=== PATIENT | male | born 1990 | race African-American/Black ===

== ENCOUNTER 2017-12-12 13:00 | Inpatient (IN) | payer OTHER ==
[2017-12-12 13:24] LABS: ADD MAN DIFF? NO
[2017-12-12] MEDS: IOHEXOL 300 MG/ML 100ML VIAL. IV ×2 (13:26)
[2017-12-12] MEDS: IV NORMAL SALINE 1000ML BAG 1,000 ML IV ×4 (13:28→14:27)
[2017-12-12] MEDS ORDERED: CONTRAST GIVEN. MC ×2 (13:30)
[2017-12-12 13:34] LABS: BASO % 1 % (0-3); EOS # 0.1 x10^3/uL (0.0-0.7); EOS % 3 % (0-3); HEMATOCRIT 43.4 % (39.0-53.0); HEMOGLOBIN 14.7 g/dL (13.0-17.5); LYMPH # 2.7 x10^3/uL (1.0-4.8); LYMPH % 51 % (24-48); MEAN CORPUSCULAR HEMOGLOBIN 31 pg (25-35); MEAN CORPUSCULAR HGB CONC 34 g/dL (31-37); MEAN CORPUSCULAR VOLUME 92 fL (79-100); MONO # 0.5 x10^3/uL (0.0-1.1); MONO % 10 % (0-9); NEUT # 1.9 x10^3uL (1.8-7.7); NEUT % 36 % (31-73); PLATELET COUNT 306 x10^3/uL (140-400); RED BLOOD COUNT 4.74 x10^6/uL (4.30-5.70); RED CELL DISTRIBUTION WIDTH 13.3 % (11.5-14.5); WHITE BLOOD COUNT 5.3 x10^3/uL (4.0-11.0)
[2017-12-12 13:35] LABS: ANION GAP 9 (6-14); BLOOD UREA NITROGEN 14 mg/dL (8-26); BUN/CREATININE RATIO 14 (6-20); CALCIUM 9.2 mg/dL (8.5-10.1); CARBON DIOXIDE 28 mmol/L (21-32); CHLORIDE 102 mmol/L (98-107); GFR 109.3; GLUCOSE 73 mg/dL (70-99); SODIUM 139 mmol/L (136-145)
[2017-12-12 13:41] LABS: ALBUMIN 3.9 g/dL (3.4-5.0); ALBUMIN/GLOBULIN RATIO 1.1 (1.0-1.7); ALK PHOS 83 U/L (46-116); ALT (SGPT) 21 U/L (16-63); AST (SGOT) 19 U/L (15-37); LIPASE 116 U/L (73-393); MAGNESIUM 1.8 mg/dL (1.8-2.4); TOTAL BILIRUBIN 0.7 mg/dL (0.2-1.0); TOTAL PROTEIN 7.4 g/dL (6.4-8.2)
[2017-12-12] MEDS: MORPHINE SULFATE 4 MG/ML DISP.SYRIN. IV ×2 (13:41)
[2017-12-12 13:42] LABS: PROTHROMBIN TIME PATIENT 12.6 SEC (11.7-14.0)
[2017-12-12 13:46] LABS: BILIRUBIN,URINE NEGATIVE (NEG); CLARITY,URINE CLEAR; COLOR,URINE YELLOW; GLUCOSE,URINE NEGATIVE (NEG); NITRITE,URINE NEGATIVE (NEG); PROTEIN,URINE NEGATIVE (NEG-TRACE); UROBILINOGEN,URINE 0.2 mg/dL (0.2 mg/dL)
[2017-12-12 13:46] LABS: TROPONINI < 0.017 ng/mL (0.000-0.055)
[2017-12-12 13:50] LABS: NT-PRO BNP 19 pg/mL (0-124)
[2017-12-12 13:50] LABS: CKMB INDEX 0.2 % (0-4); CKMB MASS 0.5 ng/mL (0.0-3.6); CREATINE KINASE 235 U/L (39-308)
[2017-12-12 13:51] LABS: D-DIMER 0.27 ug/mlFEU (0.00-0.50)
[2017-12-12 13:53] LABS: AMPHETAMINE/METHAMPHETAMINE NEG (NEG); BARBITURATES NEG (NEG); BENZODIAZEPINES NEG (NEG); CANNABINOIDS NEG (NEG); COCAINE NEG (NEG); ETHANOL, URINE NEG (NEG); METHADONE NEG (NEG); OPIATES NEG (NEG); PHENCYCLIDINE NEG (NEG)
[2017-12-12 13:56] LABS: BACTERIA,URINE 0 /HPF (0-FEW); RBC,URINE 0 /HPF (0-2)
[2017-12-12 17:08] LABS: THYROID STIM HORMONE (TSH) 0.935 uIU/mL (0.358-3.74)
[2017-12-13] MEDS: GADOBUTROL 10 MMOL/10 ML VIAL IV ×2 (10:31)
== END 2017-12-13 13:50 | disposition home or self-care (01) | DRG 310 ==
LOC: ER 13:00 → 2 SOUTH 14:32
DX: R07.89 Other chest pain (principal); I49.9 Cardiac arrhythmia, unspecified (principal); R07.9 Chest pain, unspecified; R56.9 Unspecified convulsions; E86.0 Dehydration; R55 Syncope and collapse; Z82.49 Family history of ischemic heart disease and other diseases of the circulatory system
CPT/HCPCS: 36415; 70553; 71045; 71275; 80053; 80307; 81001; 82553; 83690; 83735; 83880; 84443; 84484; 85025; 85379; 85610; 93005; 93306; 95816; 96361; 96374; 96375; 99285-25; A9585; G0378; G0379; J2270; J7030; Q9967

== ENCOUNTER 2019-08-27 21:40 | Emergency (ER) | payer OTHER ==
[~2019-08-27] VITALS: Ht 180.3 cm; Wt 92.0 kg
[2019-08-27 22:41] VITALS: BP 125/80
[2019-08-27 23:35] LABS: INFLUENZA A PATIENT NEGATIVE (NEGATIVE); INFLUENZA B PATIENT NEGATIVE (NEGATIVE)
[2019-08-27] MEDS ORDERED: AMOX500C PO (23:39)
[2019-08-27] MEDS ORDERED: METH4TAB2 PO (23:39)
--- NOTE | 2019-08-27 23:40 | PHYS DOC ---
Past Medical History Past Medical History: No Pertinent History (ANCELMO FERNANDO APRN) Smoking Status: Never Smoker Alcohol Use: Occasionally Drug Use: None (ANCELMO FERNANDO APRN) Attending Signature I have participated in the care of this patient and I have reviewed and agree with all pertinent clinical information above including history, exam, and recommendations. (BERTHA BUTLER MD) Adult General Chief Complaint Chief Complaint: FEVER HPI HPI Patient is a 28 year old male who presents with on August 15 was B+. Patient states he was not getting better so on August 24 back to urgent care with diagnosed with bronchitis. He states he was not given an antibiotic. He states that he did get better but this morning again having the same symptoms again with a cough and feeling flushed. He states that he had a headache. He states that he took his temperature and it was high. He did not take anything before coming. (ANCELMO FERNANDO APRN) Review of Systems Review of Systems Constitutional: fever or chills [] Respiratory: cough or shortness of breath [] Musculoskeletal: Bodyaches. Denies back pain or joint pain [] All other systems were reviewed and found to be within normal limits, except as documented in this note. (ANCELMO FERNANDO APRN) Current Medications Current Medications Current Medications Medications (Trade) Dose Ordered Sig/Krystal Start Time Stop Time Status Last Admin Dose Admin Ibuprofen (Motrin) 600 mg 1X ONCE 08/27/19 23:45 08/27/19 23:46 DC 08/27/19 23:29 600 MG (BERTHA BUTLER MD) Allergies Allergies Allergies Coded Allergies Type Severity Reaction Last Updated Verified No Known Drug Allergies 12/12/17 No (BERTHA BUTLER MD) Physical Exam Physical Exam Constitutional: Well developed, well nourished, no acute distress, non-toxic appearance. [] HENT: Normocephalic, atraumatic, bilateral external ears normal, oropharynx moist, no oral exudates, nose normal. [] Eyes: PERRLA, EOMI, conjunctiva normal, no discharge. [] Neck: Normal range of motion, no tenderness, supple, no stridor. [] Cardiovascular:Heart rate regular rhythm, no murmur [] Lungs & Thorax: Bilateral breath sounds clear to auscultation [] Abdomen: Bowel sounds normal, soft, no tenderness, no masses, no pulsatile masses. [] Skin: Warm, dry, no erythema, no rash. [] Back: No tenderness, no CVA tenderness. [] Extremities: No tenderness, no cyanosis, no clubbing, ROM intact, no edema. [] Neurologic: Alert and oriented X 3, normal motor function, normal sensory function, no focal deficits noted. [] Psychologic: Affect normal, judgement normal, mood normal. Normal Physical Exam [] (ANCELMO FERNANDO APRN) Current Patient Data Vital Signs Vital Signs Date Time Temp Pulse Resp B/P (MAP) Pulse Ox O2 Delivery O2 Flow Rate FiO2 08/27/19 22:41 101.4 96 22 125/80 (95) 99 Room Air 101.4 (BERTHA BUTLER MD) Lab Values Laboratory Tests Test 08/27/19 23:10 Influenza Type A Antigen Negative (NEGATIVE) Influenza Type B Antigen Negative (NEGATIVE) (BERTHA BUTLER MD) EKG EKG [] (ANCELMO FERNANDO APRN) Radiology/Procedures Radiology/Procedures [] (ANCELMO FERNANDO APRN) Course & Med Decision Making Course & Med Decision Making Pertinent Labs and Imaging studies reviewed. (See chart for details) His discomfort 10 out of 10. Speaks in full clear sentences. Skin pink warm and dry. Alert and oriented. Speaks in full clear sentences. Ambulatory with a steady gait. Throat is pink without exudates or swelling. Tympanics white. Lungs are clear to auscultation in all lobes. Patient states that he does feel short of breath at times. Patient states his cough is nonproductive. He shouldn't is febrile in the emergency room. Rapid strep and flu are negative. Patient is given an antibiotic and a Medrol Dosepak states this is been going on for several days. Patient follow-up with a primary care provider. [] (ANCELMO FERNANDO APRN) Dragon Disclaimer Dragon Disclaimer This electronic medical record was generated, in whole or in part, using a voice recognition dictation system. (ANCELMO FERNANDO APRN) Departure Departure Impression: Primary Impression: Fever Disposition: 01 HOME, SELF-CARE Condition: STABLE Referrals: STEF SLIVER MD (PCP) Patient Instructions: Fever, Adult Additional Instructions: Follow up with primary care provider. Take medication as prescribed and with food. Take Ibuprofen for pain and fever. Scripts Methylprednisolone (MEDROL) 4 Mg Tab.ds.pk 1 PKG PO UD, #1 PKG Prov: ANCELMO FERNANDO APRN 08/27/19 Amoxicillin (AMOXICILLIN) 500 Mg Capsule 1 CAP PO BID, #20 CAP Prov: ANCELMO FERNANDO APRN 08/27/19 Problem Qualifiers Primary Impression: Fever Fever type: unspecified Qualified Codes: R50.9 - Fever, unspecified ANCELMO FERNANDO APRN Aug 27, 2019 23:40 BERTHA BUTLER MD Aug 28, 2019 01:23
[2019-08-27] MEDS ORDERED: IBUPROFEN 200 MG TABLET. PO ONE (23:45)
--- NOTE | 2019-08-28 01:03 | RAD ---
Two-view chest dated 08/27/2019. Comparison made to 12/12/2017. Clinical data indication: Fever and shortness of breath. FINDINGS: PA and lateral views obtained. Heart and mediastinal contours are stable. Lungs are clear. No consolidation or pleural effusion. No pneumothorax. IMPRESSION: No acute findings. Electronically signed by: Trenton Clarke MD (08/28/2019 12:59 AM) [id number]
== END 2019-08-27 23:56 | disposition home or self-care (01) ==
LOC: ER 21:40
DX: R50.9 Fever, unspecified (principal); R05 Cough; R51 Headache
CPT/HCPCS: 71046; 87804; 99284